=== PATIENT | female | born 1985 | race Two or more races ===

== ENCOUNTER 2017-03-26 16:11 | Emergency (ER) | payer OTHER ==
[~2017-03-26] VITALS: Ht 175.3 cm; Wt 111.1 kg
--- NOTE | 2017-03-26 16:50 | NUR ---
MSE DONE BY DR PATEL. PATIENT A & O X 4.
[2017-03-26] MEDS ORDERED: HYDROCODONE/APAP 5-325MG TABLET PO ONE (17:30)
[2017-03-26] MEDS ORDERED: HYDROCODONE/APAP 5-325MG TABLET ONE (17:54)
[2017-03-26] MEDS ORDERED: FLUORESCEIN SODIUM 1 MG STRIP ONE (19:12)
[2017-03-26] MEDS ORDERED: TETRACAINE HCL 0.5% OPHT DROP 2 ML BOTTLE ONE (19:12)
--- NOTE | 2017-03-26 19:25 | NUR ---
DR RODRIGUEZ AT BEDSIDE MADE PATIENT AWARE OF TEST RESULTS WILL BE DC HOME.
[2017-03-26 19:45] VITALS: BP 114/70
--- NOTE | 2017-03-26 19:45 | NUR ---
Patient discharged to home in stable conditon. Written and verbal after care instructions given. Patient verbalizes understanding of instructions.
== END 2017-03-26 19:48 | disposition home or self-care (01) ==
LOC: ER 16:12
DX: S05.02XA Injury of conjunctiva and corneal abrasion without foreign body, left eye, initial encounter (principal); E11.9 Type 2 diabetes mellitus without complications; N83.209 Unspecified ovarian cyst, unspecified side; Z86.73 Personal history of transient ischemic attack (TIA), and cerebral infarction without residual deficits; Z90.49 Acquired absence of other specified parts of digestive tract; W18.30XA Fall on same level, unspecified, initial encounter; Y93.89 Activity, other specified; Y92.89 Other specified places as the place of occurrence of the external cause; Y99.8 Other external cause status
CPT/HCPCS: 70480; A4663

== ENCOUNTER 2017-05-04 17:44 | Emergency (ER) | payer OTHER ==
[~2017-05-04] VITALS: Ht 175.3 cm; Wt 119.3 kg
[2017-05-04] MEDS ORDERED: IBUPROFEN 800 MG TABLET PO ONE (19:00)
--- NOTE | 2017-05-04 19:00 | NUR ---
DANNA MUKHERJEE AT BEDSIDE FOR MSE.
--- NOTE | 2017-05-04 19:00 | NUR ---
PT C/O L FOOT PAIN R/T FALLING OFF A GO-CART. SWELLING AND BRUISING PRESENT.
[2017-05-04] MEDS ORDERED: IBUPROFEN 800 MG TABLET ONE (19:28)
--- NOTE | 2017-05-04 20:25 | NUR ---
Patient discharged to home in stable conditon. Written and verbal after care instructions given. Patient verbalizes understanding of instructions. Pt ambulatory w/ steady gait. VSS. Pt took all personal belongings.
[2017-05-04 20:55] VITALS: BP 136/94
== END 2017-05-04 20:25 | disposition home or self-care (01) ==
LOC: ER 17:44
DX: S93.402A Sprain of unspecified ligament of left ankle, initial encounter (principal); E11.9 Type 2 diabetes mellitus without complications; Z86.73 Personal history of transient ischemic attack (TIA), and cerebral infarction without residual deficits; W22.8XXA Striking against or struck by other objects, initial encounter; Y93.89 Activity, other specified; Y92.89 Other specified places as the place of occurrence of the external cause; Y99.8 Other external cause status
CPT/HCPCS: 73610; A4663

== ENCOUNTER 2017-06-04 20:20 | Emergency (ER) | payer OTHER ==
--- NOTE | 2017-06-04 22:05 | NUR ---
PATIENT WAS CALLED BUT PATIENT WAS NOT PRESENT
--- NOTE | 2017-06-05 00:03 | NUR ---
patient was called several to be triaged. Patient was not present. Was not triaged or seen by ERMD
== END 2017-06-05 00:04 | disposition left against medical advice (07) ==
LOC: ER 20:20
DX: Z53.21 Procedure and treatment not carried out due to patient leaving prior to being seen by health care provider (principal)